=== PATIENT | female | born 1975 | race Caucasian/White ===

== ENCOUNTER 2018-06-19 07:54 | Day surgery (SDC) | payer BC ==
[2018-06-15 15:34] VITALS: BMI 36.1
[~2018-06-19 07:54] MED LIST: LACTATED RINGERS 1,000 ML IV SCH; LIDOCAINE 1% 20 ML VIAL (10MG/ML) FOR IV START INTRADERMA PRN; MIDAZOLAM 2 MG/2 ML VIAL IV PRN
[2018-06-19 08:30] VITALS: TEMP 97.6
[2018-06-19] MEDS ORDERED: fentaNYL (PF) 50 MCG/ML 2 ML AMP ONE (09:15)
[2018-06-19] MEDS ORDERED: LIDOCAINE 1% INJ 10MG/ML (20 ML MDV) ONE (09:15)
[2018-06-19] MEDS ORDERED: PROPOFOL 10 MG/ML 20 ML VIAL IV ONE (09:15)
--- NOTE | 2018-06-19 09:19 | P.GSHP ---
History of Present Illness H&P Date: 06/19/18 Chief Complaint: GI bleed this is a 43-year-old female who presents today for colonoscopy. Patient has had history of blood in her stool. She presents today for colonoscopy. She states that she has no blood in her bowel prep. Past Medical History Past Medical History: Asthma, GERD/Reflux, GI Bleed, Osteoarthritis (OA) Additional Past Medical History / Comment(s): seasonal allergies History of Any Multi-Drug Resistant Organisms: None Reported Past Surgical History: Cholecystectomy, Hysterectomy, Tonsillectomy Past Anesthesia/Blood Transfusion Reactions: Postoperative Nausea & Vomiting ( PONV) Smoking Status: Former smoker - Past Family History Mother Family Medical History: No Reported History Medications and Allergies Home Medications Medication Instructions Recorded Confirmed Type Albuterol Inhaler [Ventolin Hfa 1 - 2 puff INHALATION RT-Q6H PRN 06/15/18 History Inhaler] Ascorbic Acid [Vitamin C] 500 mg PO DAILY 06/15/18 06/19/18 History Cholecalciferol [Vitamin D3] 1,000 unit PO DAILY 06/15/18 06/19/18 History Ibuprofen [Motrin Ib] 2 tab PO DAILY 06/15/18 06/19/18 History Omeprazole 20 mg PO DAILY 06/15/18 06/19/18 History Vitamin B Complex 1 each PO DAILY 06/15/18 06/19/18 History diphenhydrAMINE [Benadryl] 25 mg PO HS PRN 06/15/18 06/19/18 History Allergies Allergy/AdvReac Type Severity Reaction Status Date / Time atenolol Allergy Rash/Hives Verified 06/19/18 08:29 Surgical - Exam Vital Signs Temp Pulse Resp BP Pulse Ox 97.6 F 87 18 156/95 99 06/19/18 08:27 06/19/18 08:27 06/19/18 08:27 06/19/18 08:27 06/19/18 08:27 - General well developed, no distress - Eyes PERRL - ENT normal pinna - Neck no masses - Respiratory normal expansion - Cardiovascular Rhythm: regular - Abdomen Abdomen: soft, non tender Assessment and Plan Assessment: GI bleed. We'll perform colonoscopy.
--- NOTE | 2018-06-19 09:34 | P.OP ---
Date of Procedure: 06/19/18 Preoperative Diagnosis: GI bleed Postoperative Diagnosis: proctitis Procedure(s) Performed: colonoscopy Anesthesia: MAC Surgeon: Harman Barboza Pathology: other (rectal polyp) Condition: stable Disposition: PACU Description of Procedure: the patient's placed on the endoscopy table in the lateral position. She received IV sedation. Digital rectal exam was performed which revealed no abnormalities. The flexible colonoscope was then placed patient anus and passed throughout the entire colon. The ileocecal valve was visualized. The cecum, ascending and transverse colon appeared normal. The descending and; appeared normal. Scope was brought back the rectum and there appeared to be some inflammatory changes of the rectum. A biopsies was performed. Scope was withdrawn for patient.
[2018-06-19 09:38] VITALS: RESP 16
[2018-06-19 09:57] VITALS: BP 129/81; PULSE 80
== END 2018-06-19 10:27 | disposition home or self-care (01) ==
LOC: ORWHC2ENDO 07:54
PROVIDERS: ATTEND Surgery
DX: K52.9 Noninfective gastroenteritis and colitis, unspecified (principal); K62.89 Other specified diseases of anus and rectum; J45.909 Unspecified asthma, uncomplicated; K21.9 Gastro-esophageal reflux disease without esophagitis; M19.90 Unspecified osteoarthritis, unspecified site; Z87.891 Personal history of nicotine dependence; Z79.1 Long term (current) use of non-steroidal anti-inflammatories (NSAID); Z79.899 Other long term (current) drug therapy; Z88.8 Allergy status to other drugs, medicaments and biological substances
CPT/HCPCS: 88305; 45380; J2001; J3010; J2704

== ENCOUNTER 2018-08-21 01:14 | Emergency (ER) | payer BC ==
[2018-08-21 01:20] VITALS: RESP 16
[2018-08-21] MEDS ORDERED: KETOROLAC 30 MG/ML 1 ML VIAL IVP STA (02:49)
[2018-08-21] MEDS ORDERED: diphenhydrAMINE 50 MG/ML 1 ML VIAL IVP STA (02:49)
[2018-08-21] MEDS ORDERED: METOCLOPRAMIDE 5 MG/ML 2 ML VIAL IVP STA (02:49)
[2018-08-21] MEDS ORDERED: SODIUM CHLORIDE 0.9% 1,000 ML IV ONE (02:50)
--- NOTE | 2018-08-21 02:53 | ED ---
Headache HPI - General Chief Complaint: Headache Stated Complaint: Headache Time Seen by Provider: 08/21/18 02:14 Mode of arrival: ambulatory Limitations: no limitations - History of Present Illness Initial Comments: This patient is a 43-year-old woman presenting with headache. She states she has been getting headaches similar to this one for approximately 2-1/2 years now. She indicates the left frontoparietal area. She states that the headache is throbbing, moderate intensity, and constant. She was at rest when it came on. It is been getting gradually worse. She has some associated nausea. No neck stiffness. No neurologic symptoms. No fever or chills. MD Complaint: headache Onset/Timin -: days(s) Onset Description: gradual Location: left, temporal Severity: moderate Quality: throbbing Consistency: constant Improves With: nothing Worsens With: none Context: occurred at rest Associated Symptoms: nausea Treatments Prior to Arrival: Ibuprofen - Related Data Home Medications Medication Instructions Recorded Confirmed Albuterol Inhaler [Ventolin Hfa 1 - 2 puff INHALATION RT-Q6H PRN 06/15/18 Inhaler] Ascorbic Acid [Vitamin C] 500 mg PO DAILY 06/15/18 06/19/18 Cholecalciferol [Vitamin D3] 1,000 unit PO DAILY 06/15/18 06/19/18 Ibuprofen [Motrin Ib] 2 tab PO DAILY 06/15/18 06/19/18 Omeprazole 20 mg PO DAILY 06/15/18 06/19/18 Vitamin B Complex 1 each PO DAILY 06/15/18 06/19/18 diphenhydrAMINE [Benadryl] 25 mg PO HS PRN 06/15/18 06/19/18 Previous Rx's Medication Instructions Recorded SUMAtriptan SUCCINATE [Imitrex] 25 mg PO ONCE PRN #10 tablet 08/21/18 Allergies Allergy/AdvReac Type Severity Reaction Status Date / Time atenolol Allergy Rash/Hives Verified 08/21/18 01:19 Review of Systems ROS Statement: Those systems with pertinent positive or pertinent negative responses have been documented in the HPI. ROS Other: All systems not noted in ROS Statement are negative. Constitutional: Denies: fever, chills Eyes: Denies: eye pain, vision change Respiratory: Denies: cough, dyspnea Cardiovascular: Denies: syncope Gastrointestinal: Reports: nausea. Denies: abdominal pain, vomiting Musculoskeletal: Denies: back pain Skin: Denies: rash Neurological: Reports: headache. Denies: weakness, numbness, paresthesias, confusion, abnormal gait Past Medical History Past Medical History: Asthma, GERD/Reflux, GI Bleed, Osteoarthritis (OA) Additional Past Medical History / Comment(s): seasonal allergies History of Any Multi-Drug Resistant Organisms: None Reported Past Surgical History: Cholecystectomy, Hysterectomy, Tonsillectomy Past Anesthesia/Blood Transfusion Reactions: Postoperative Nausea & Vomiting ( PONV) Past Psychological History: Anxiety Smoking Status: Former smoker - Past Family History Mother Family Medical History: No Reported History General Exam Limitations: no limitations General appearance: alert, in no apparent distress Head exam: Present: atraumatic, normocephalic Eye exam: Present: normal appearance, PERRL, EOMI. Absent: scleral icterus, conjunctival injection ENT exam: Present: normal oropharynx Neck exam: Present: normal inspection, full ROM. Absent: meningismus Respiratory exam: Present: normal lung sounds bilaterally. Absent: respiratory distress, wheezes, rales, rhonchi, stridor Cardiovascular Exam: Present: regular rate, normal rhythm, normal heart sounds Neurological exam: Present: alert, oriented X3, CN II-XII intact, normal gait. Absent: motor sensory deficit Skin exam: Present: warm, dry, intact, normal color. Absent: rash Course Vital Signs 08/21/18 08/21/18 01:16 04:40 Temperature 98.2 F 98.6 F Pulse Rate 95 86 Respiratory 16 16 Rate Blood Pressure 177/93 140/90 O2 Sat by Pulse 98 99 Oximetry Medical Decision Making - Medical Decision Making Patient is a 43-year-old woman having between 2 and 3 years of intermittent migraine symptoms and this is characteristic of these headaches. Discussed obtaining imaging tonight, but the patient does not have any red flag symptoms and will have her follow with neurology for MRI, with faint to spare her radiation exposure. We did discuss appropriate follow-up and return parameters. She did have good relief following the Imitrex and does request to go home. Disposition Clinical Impression: Headache Disposition: HOME SELF-CARE Condition: Good Instructions: Acute Headache (ED) Prescriptions: SUMAtriptan SUCCINATE [Imitrex] 25 mg PO ONCE PRN #10 tablet PRN Reason: Headache Is patient prescribed a controlled substance at d/c from ED?: No Referrals: Екатерина Verma DO [Primary Care Provider] - 1-2 days Yuly Tay MD [STAFF PHYSICIAN] - 1-2 days
[2018-08-21] MEDS ORDERED: SUMAtriptan SUCCINATE 6 MG/0.5 ML VIAL SQ STA (03:27)
[2018-08-21] MEDS ORDERED: PROMETHAZINE INJ 25 MG in SODIUM CHLORIDE 0.9% 50 ML IVPB STA (03:33)
[2018-08-21 04:45] VITALS: BP 140/90; PULSE 86; TEMP 98.6
== END 2018-08-21 04:40 | disposition home or self-care (01) ==
LOC: EC 01:14
DX: R51 Headache (principal); R11.0 Nausea; J45.909 Unspecified asthma, uncomplicated; K21.9 Gastro-esophageal reflux disease without esophagitis; M19.90 Unspecified osteoarthritis, unspecified site; Z87.891 Personal history of nicotine dependence; Z79.1 Long term (current) use of non-steroidal anti-inflammatories (NSAID); Z79.899 Other long term (current) drug therapy; Z88.8 Allergy status to other drugs, medicaments and biological substances
CPT/HCPCS: 99284; 96374; 96375 ×3; 96361; 96372; J3030; J1200; J2550; J2765; J1885

== ENCOUNTER → 2020-07-23 | Outpatient (CLI) | payer BC ==
[2020-07-23 13:50] LABS: Basophils # (A) 0.1 k/uL (0-0.2); Basophils % (A) 1 %; Eosinophils # (A) 0.5 k/uL (0-0.7); Eosinophils % (A) 8 %; HCT 41.2 % (34.0-46.0); HGB 14.2 gm/dL (11.4-16.0); Lymphocytes # (A) 1.8 k/uL (1.0-4.8); Lymphocytes % (A) 28 %; MCH 29.8 pg (25.0-35.0); MCHC 34.4 g/dL (31.0-37.0); MCV 86.8 fL (80.0-100.0); Mean Platelet Volume 7.7; Monocytes # (A) 0.4 k/uL (0-1.0); Monocytes % (A) 6 %; Neutrophils # (A) 3.4 k/uL (1.3-7.7); Neutrophils % (A) 53 %; Platelet Count 301 k/uL (150-450); RBC 4.75 m/uL (3.80-5.40); RDW 12.2 % (11.5-15.5); WBC 6.4 k/uL (3.8-10.6)
[2020-07-23 19:30] LABS: African American GFR (CKD) 103.2 (60.0-200.0); Albumin 4.4 g/dL (3.80-4.90); Albumin/Globulin Ratio 1.83 (1.60-3.17); Anion Gap 8.7 mmol/L (4.00-12.00); BUN/Creat Ratio 13.75 Ratio (12.00-20.00); C Reactive Protein 0.4 mg/dL (0.0-0.8); Carbon Dioxide 26.3 mmol/L (21.6-31.8); Globulin 2.4 g/dL (1.6-3.3); Potassium 3.8 mmol/L (3.5-5.5); Total Bilirubin 0.6 mg/dL (0.3-1.2); Total Protein 6.8 g/dL (6.2-8.2)
== END | disposition home or self-care (01) ==
LOC: LABWHC1 12:57
PROVIDERS: ATTEND Nurse Practitioner
DX: K62.89 Other specified diseases of anus and rectum (principal)
CPT/HCPCS: 36415; 80053; 83993; 85025; 86140; 87045; 87046; 87324

== ENCOUNTER 2020-07-31 09:49 | Day surgery (SDC) | payer BC ==
[2020-07-29 15:03] VITALS: BMI 36.1
[~2020-07-31 09:49] MED LIST changes: -LIDOCAINE 1% 20 ML VIAL (10MG/ML) FOR IV START INTRADERMA PRN; -MIDAZOLAM 2 MG/2 ML VIAL IV PRN
[2020-07-31 10:46] VITALS: RESP 16; TEMP 97.6
[2020-07-31] MEDS ORDERED: PROPOFOL 10 MG/ML 20 ML VIAL IV ONE (11:40)
--- NOTE | 2020-07-31 12:10 | P.PCN ---
Date of Procedure: 07/31/20 Description of Procedure: BRIEF HISTORY: Patient is a 45-year-old female presenting for outpatient colonoscopy for other specified diseases of the anus and rectum/proctitis. Patient had colonoscopy in 2018 for symptoms of rectal bleeding. The patient was started on 5ASA agent at that time and treated with steroids. She did not tolerate the medications. She was seen in the clinic with GI complaints and scheduled for colonoscopy for further evaluation. PROCEDURE PERFORMED: Colonoscopy with biopsy. PREOPERATIVE DIAGNOSIS: Other specified diseases of the anus and rectum, proctitis, last colonoscopy 2017. ESTIMATED BLOOD LOSS: Minimal. IV sedation per Anesthesia. PROCEDURE: After informed consent was obtained, the patient, was brought into the endoscopy unit. IV sedation was administered by Anesthesia under continuous monitoring. Digital rectal examination was normal. Initially the Olympus CF-190 flexible video colonoscope was then inserted in the rectum, gradually advanced into the cecum without any difficulty. Careful examination was performed as the scope was gradually being withdrawn. Ileocecal valve and the appendiceal orifice were visualized and appeared normal. Prep was excellent. Mucosa of the cecum, ascending colon, transverse colon, descending colon, sigmoid colon, and rectum appeared grossly normal, however there was scattered patchy erythema throughout the colon consistent with mild colitis, in the distal rectum there was moderate erythema with some friability. Biopsies were taken throughout the colon including the right colon, transverse colon, left colon, rectum and a normal- appearing terminal ileum. Retroflexion was performed in the rectum and no lesions were seen. The patient tolerated the procedure well. IMPRESSION: Mild pancolitis, with more erythema noted in the distal rectum/proctitis. Random biopsies taken of a normal-appearing terminal ileum, as well as the right colon, transverse colon, left colon and rectum. RECOMMENDATIONS: Findings of this examination were discussed with the patient and her . Okay to resume diet. Okay to resume medications. Await pathology from biopsies. Patient should follow-up in the GI clinic for further management and to go over results of the biopsies in one to 2 weeks. Consideration for 5ASA agents and possibility of rectal therapy given more active disease in the distal rectum.
[2020-07-31 12:29] VITALS: BP 127/74; PULSE 79
== END 2020-07-31 12:58 | disposition home or self-care (01) ==
LOC: ORWHC2ENDO 09:49
PROVIDERS: ATTEND Internal Medicine
DX: K52.9 Noninfective gastroenteritis and colitis, unspecified (principal); K62.89 Other specified diseases of anus and rectum; F32.9 Major depressive disorder, single episode, unspecified; Z87.19 Personal history of other diseases of the digestive system; Z87.891 Personal history of nicotine dependence; Z88.8 Allergy status to other drugs, medicaments and biological substances; Z79.899 Other long term (current) drug therapy; Z79.1 Long term (current) use of non-steroidal anti-inflammatories (NSAID); Z90.49 Acquired absence of other specified parts of digestive tract; Z90.710 Acquired absence of both cervix and uterus; Z90.89 Acquired absence of other organs; Z98.890 Other specified postprocedural states
CPT/HCPCS: 88305; 45380; J2704

== ENCOUNTER → 2020-08-28 | Outpatient (CLI) | payer BC ==
--- NOTE | 2020-09-01 14:10 | MM ---
Reason for exam: screening (asymptomatic). Last mammogram was performed 7 years and 6 months ago. Physical Findings: A clinical breast exam by your physician is recommended on an annual basis and results should be correlated with mammographic findings. MG 3D Screening Mammo W/Cad Bilateral CC and MLO view(s) were taken. Prior study comparison: March 07, 2013, mammogram. October 01, 2011, mammogram. The breast tissue is heterogeneously dense. This may lower the sensitivity of mammography. There is chronic nodularity in the left axilla. Asymmetric breast tissue left breast, stable. ASSESSMENT: Benign, BI-RAD 2 RECOMMENDATION: Routine screening mammogram of both breasts in 1 year.
== END | disposition home or self-care (01) ==
LOC: RADMAMWWP 11:02
PROVIDERS: ATTEND Family Medicine
DX: Z12.31 Encounter for screening mammogram for malignant neoplasm of breast (principal)
CPT/HCPCS: 77063; 77067

== ENCOUNTER → 2020-11-26 | Outpatient (CLI) | payer BC ==
[2020-11-26 20:41] LABS: Basophils % (A) 1.4 %; Eosinophils # (A) 0.54 X 10*3/uL (0.04-0.35); Eosinophils % (A) 7.5 %; HCT 41.6 % (37.2-46.3); HGB 13.9 g/dL (12.0-15.0); Lymphocytes # (A) 2.06 X 10*3/uL (0.90-5.00); Lymphocytes % (A) 28.5 %; MCH 28.8 pg (27.0-32.0); MCHC 33.4 g/dL (32.0-37.0); MCV 86.1 fL (80.0-97.0); Mean Platelet Volume 11.6 fL (9.5-12.2); Monocytes # (A) 0.61 X 10*3/uL (0.20-1.00); Monocytes % (A) 8.4 %; Neutrophils # (A) 3.91 X 10*3/uL (1.80-7.70); Neutrophils % (A) 53.9 %; Platelet Count 350 X 10*3/uL (140-440); RBC 4.83 X 10*6/uL (4.10-5.20); RDW 12.6 % (11.5-14.5); WBC 7.24 X 10*3/uL (4.50-10.00)
[2020-11-26 23:17] LABS: Erythrocyte Sedimentation Rate 25 mm/Hr (0-20)
== END | disposition home or self-care (01) ==
LOC: LABWHC1 13:15
PROVIDERS: ATTEND Nurse Practitioner
DX: K51.90 Ulcerative colitis, unspecified, without complications (principal)
CPT/HCPCS: 36415; 85025; 85652; 86140

== ENCOUNTER 2022-08-13 16:23 | Emergency (ER) | payer BC ==
[2022-08-13] MEDS ORDERED: KETOROLAC 15 MG/ML 1 ML VIAL IVP STA (18:52)
[2022-08-13 19:31] LABS: Basophils # (A) 0.1 k/uL (0-0.2); Basophils % (A) 1 %; Eosinophils # (A) 0.3 k/uL (0-0.7); Eosinophils % (A) 4 %; HCT 39.2 % (34.0-46.0); HGB 13.6 gm/dL (11.4-16.0); Lymphocytes # (A) 1.7 k/uL (1.0-4.8); Lymphocytes % (A) 23 %; MCHC 34.7 g/dL (31.0-37.0); MCV 83.7 fL (80.0-100.0); Mean Platelet Volume 8.6; Monocytes # (A) 0.4 k/uL (0-1.0); Monocytes % (A) 5 %; Neutrophils # (A) 4.9 k/uL (1.3-7.7); Neutrophils % (A) 64 %; Platelet Count 305 k/uL (150-450); RBC 4.68 m/uL (3.80-5.40); WBC 7.6 k/uL (3.8-10.6)
[2022-08-13 19:43] LABS: ALT 24 U/L (4-34); AST 26 U/L (14-36); African American GFR (CKD) >90 (>60 ml/min/1.73 sqM); Albumin 4.2 g/dL (3.5-5.0); Alkaline Phosphatase 82 U/L (38-126); Anion Gap 8 mmol/L; Blood Urea Nitrogen 13 mg/dL (7-17); Calcium 9.1 mg/dL (8.4-10.2); Carbon Dioxide 24 mmol/L (22-30); Chloride 108 mmol/L (98-107); Glucose 98 mg/dL (74-99); Magnesium 1.9 mg/dL (1.6-2.3); Non-African American GFR(CKD) >90 (>60 ml/min/1.73 sqM); Potassium 3.8 mmol/L (3.5-5.1); Sodium 140 mmol/L (137-145); Total Bilirubin 0.1 mg/dL (0.2-1.3); Total Protein 6.9 g/dL (6.3-8.2)
[2022-08-13 19:45] LABS: Partial Thromboplastin Time 27.7 sec (22.0-30.0)
--- NOTE | 2022-08-13 20:04 | ED ---
General Adult HPI - General Chief complaint: Extremity Problem,Nontraumatic Stated complaint: Back&Arm Pain Time Seen by Provider: 08/13/22 18:21 Source: patient, RN notes reviewed, old records reviewed Mode of arrival: ambulatory - History of Present Illness Initial comments: Patient is a 47-year-old female with past medical history remarkable for hypertension, asthma, acid reflux who presents emergency Department complaining of a three-day history of worsening left shoulder pain. States it is in the posterior aspect of her left shoulder and is a sharp shooting sensation down the posterior aspect of her left arm towards her fingertips. It is worse with movement. This radiates somewhat around to armpit. Denies any neck or back trauma. Denies any weakness. Denies any shortness of breath, difficulty breathing. Denies any fevers, chills, cough. Has no abdominal pain, nausea, vomiting, diarrhea. Presents for further evaluation at this time. No history of cardiac stents. - Related Data Home Medications Medication Instructions Recorded Confirmed Albuterol Inhaler [Ventolin Hfa 1 - 2 puff INHALATION RT-Q6H PRN 06/15/1811/15 Inhaler] Ascorbic Acid [Vitamin C] 500 mg PO DAILY 06/15/18 07/31/20 Ibuprofen [Motrin Ib] 400 tab PO DAILY PRN 06/15/18 07/31/20 Omeprazole 20 mg PO DAILY 06/15/18 07/31/20 diphenhydrAMINE [Benadryl] 25 mg PO HS PRN 06/15/18 07/31/20 Erenumab-Aooe [Aimovig 70 mg SQ Q30D 07/29/20 07/31/20 Autoinjector (2 Pack)] FLUoxetine HCL [PROzac] 20 mg PO DAILY 07/29/20 07/31/20 Loratadine [Claritin] 10 mg PO DAILY 07/29/20 07/31/20 Magnesium Oxide [Leach] 500 mg PO HS 07/29/20 07/31/20 busPIRone HCL 15 mg PO BID 07/29/20 07/31/20 Previous Rx's Medication Instructions Recorded SUMAtriptan succinate [Imitrex] 25 mg PO ONCE PRN #10 tablet 08/21/18 Allergies Allergy/AdvReac Type Severity Reaction Status Date / Time atenolol Allergy Rash/Hives Verified 08/13/22 16:44 Review of Systems ROS Statement: Those systems with pertinent positive or pertinent negative responses have been documented in the HPI. Review of Systems: CONST: Denies fever EYES: Denies blurry vision ENT: Denies nasal congestion C/V: Denies Chest pain RESP: Denies shortness of breath GI: Denies abdominal pain : Denies dysuria SKIN: Denies rash. MSK: Endorses left shoulder pain NEURO: Denies headache ROS Other: All systems not noted in ROS Statement are negative. Past Medical History Past Medical History: Hypertension Additional Past Medical History / Comment(s): seasonal allergies, cholitis, migraines, History of Any Multi-Drug Resistant Organisms: None Reported Past Surgical History: Cholecystectomy, Hysterectomy, Tonsillectomy Past Anesthesia/Blood Transfusion Reactions: Postoperative Nausea & Vomiting (PONV) Past Psychological History: Anxiety Smoking Status: Never smoker Past Alcohol Use History: Occasional Past Drug Use History: Marijuana - Past Family History Mother Family Medical History: No Reported History Brother(s) Family Medical History: Cancer General Exam - General Exam Comments Initial Comments: General: Appears in no acute distress. HEAD: Normal with no signs of head trauma. EYES: PERRLA, EOMI, conjunctiva normal, no discharge. ENT: Hearing grossly intact, normal oropharynx. RESPIRATORY: Clear breath sounds bilaterally. No wheezes, rales, or rhonchi. C/V: Regular rate and rhythm. S1 and S2 auscultated, no edema, peripheral pulses 2+ and intact throughout ABD: Abd is soft, nontender, nondistended EXT: Normal range of motion, no obvious deformity. Left shoulder pain is reproducible on palpation. No midline cervical, thoracic spine tenderness to palpation. Pain seems to be primarily over the left-sided trapezius muscle. SKIN: No rashes or lesions observed on exposed skin. NEURO: Alert and oriented x 4. Cranial nerves II-XII intact. No focal sensory or strength deficits. GCS of 15. NIH of 0. Course Vital Signs 08/13/22 16:40 Temperature 99.3 F Pulse Rate 87 Respiratory 16 Rate Blood Pressure 186/109 O2 Sat by Pulse 97 Oximetry Medical Decision Making - Medical Decision Making Based on the patient's presentation and physical exam, I'm concerned for acute cardio pulmonary etiology for her current symptoms. It is more likely that this is a radiculopathy, however with the pain radiating towards her armpit occasionally, I do want obtain basic cardiac labs, EKG, chest x-ray. She was in agreement this plan. Vital signs within except for limits. She will be given IV Toradol. Patient was in agreement this plan. EKG shows no signs of acute ischemia. Patient's laboratory studies are remarkable for an undetectable troponin. - Lab Data Result diagrams: 08/13/22 19:15 08/13/22 19:15 Lab Results 08/13/22 08/13/22 08/13/22 Range/Units 19:15 19:15 19:15 WBC 7.6 (3.8-10.6) k/uL RBC 4.68 (3.80-5.40) m/uL Hgb 13.6 (11.4-16.0) gm/dL Hct 39.2 (34.0-46.0) % MCV 83.7 (80.0-100.0) fL MCH 29.0 (25.0-35.0) pg MCHC 34.7 (31.0-37.0) g/dL RDW 13.0 (11.5-15.5) % Plt Count 305 (150-450) k/uL MPV 8.6 Neutrophils % 64 % Lymphocytes % 23 % Monocytes % 5 % Eosinophils % 4 % Basophils % 1 % Neutrophils # 4.9 (1.3-7.7) k/uL Lymphocytes # 1.7 (1.0-4.8) k/uL Monocytes # 0.4 (0-1.0) k/uL Eosinophils # 0.3 (0-0.7) k/uL Basophils # 0.1 (0-0.2) k/uL PT 11.0 (9.0-12.0) sec INR 1.0 (<1.2) APTT 27.7 (22.0-30.0) sec Sodium 140 (137-145) mmol/L Potassium 3.8 (3.5-5.1) mmol/L Chloride 108 H (98-107) mmol/L Carbon Dioxide 24 (22-30) mmol/L Anion Gap 8 mmol/L BUN 13 (7-17) mg/dL Creatinine 0.61 (0.52-1.04) mg/dL Est GFR (CKD-EPI)AfAm >90 (>60 ml/min/1.73 sqM) Est GFR (CKD-EPI)NonAf >90 (>60 ml/min/1.73 sqM) Glucose 98 (74-99) mg/dL Calcium 9.1 (8.4-10.2) mg/dL Magnesium 1.9 (1.6-2.3) mg/dL Total Bilirubin 0.1 L (0.2-1.3) mg/dL AST 26 (14-36) U/L ALT 24 (4-34) U/L Alkaline Phosphatase 82 (38-126) U/L Troponin I (0.000-0.034) ng/mL Total Protein 6.9 (6.3-8.2) g/dL Albumin 4.2 (3.5-5.0) g/dL 08/13/22 Range/Units 19:15 WBC (3.8-10.6) k/uL RBC (3.80-5.40) m/uL Hgb (11.4-16.0) gm/dL Hct (34.0-46.0) % MCV (80.0-100.0) fL MCH (25.0-35.0) pg MCHC (31.0-37.0) g/dL RDW (11.5-15.5) % Plt Count (150-450) k/uL MPV Neutrophils % % Lymphocytes % % Monocytes % % Eosinophils % % Basophils % % Neutrophils # (1.3-7.7) k/uL Lymphocytes # (1.0-4.8) k/uL Monocytes # (0-1.0) k/uL Eosinophils # (0-0.7) k/uL Basophils # (0-0.2) k/uL PT (9.0-12.0) sec INR (<1.2) APTT (22.0-30.0) sec Sodium (137-145) mmol/L Potassium (3.5-5.1) mmol/L Chloride (98-107) mmol/L Carbon Dioxide (22-30) mmol/L Anion Gap mmol/L BUN (7-17) mg/dL Creatinine (0.52-1.04) mg/dL Est GFR (CKD-EPI)AfAm (>60 ml/min/1.73 sqM) Est GFR (CKD-EPI)NonAf (>60 ml/min/1.73 sqM) Glucose (74-99) mg/dL Calcium (8.4-10.2) mg/dL Magnesium (1.6-2.3) mg/dL Total Bilirubin (0.2-1.3) mg/dL AST (14-36) U/L ALT (4-34) U/L Alkaline Phosphatase (38-126) U/L Troponin I <0.012 (0.000-0.034) ng/mL Total Protein (6.3-8.2) g/dL Albumin (3.5-5.0) g/dL - EKG Data -: EKG Interpreted by Me EKG Comments: 12-lead Electrocardiogram Interpretation Note EKG was reviewed and interpreted by myself. 12-lead ECG performed at 1648 is interpreted by me as revealing normal sinus rhythm at a rate of 78 beats per minute. [place] is normal. OK interval is 176 seconds, QRS duration 78 ms, QTc is 398 ms.. There were no ST or T wave abnormalities to suggest myocardial ischemia or injury. R wave progression across the precordium was satisfactory. By my interpretation this EKG is non-diagnostic for acute ischemia. Disposition Clinical Impression: Cervical radiculopathy Disposition: HOME SELF-CARE Condition: Good Instructions (If sedation given, give patient instructions): Cervical Radiculopathy (ED) Is patient prescribed a controlled substance at d/c from ED?: No Referrals: Mina Tran MD [Primary Care Provider] - 1-2 days Mu Stovall DO [Doctor of Osteopathic Medicine] - 1-2 days Time of Disposition: 20:45
--- NOTE | 2022-08-13 20:17 | XR ---
EXAMINATION TYPE: XR chest 2V DATE OF EXAM: 08/13/2022 7:34 PM COMPARISON: None TECHNIQUE: XR chest 2V Frontal and lateral views of the chest. CLINICAL INDICATION:Female, 47 years old with history of Chest Pain; FINDINGS: Lungs/Pleura: There is no evidence of pleural effusion, focal consolidation, or pneumothorax. Pulmonary vascularity: Unremarkable. Heart/mediastinum: Cardiomediastinal silhouette is unremarkable. Musculoskeletal: No acute osseous pathology. IMPRESSION: No acute cardiopulmonary disease/process.
--- NOTE | 2022-08-13 20:23 | CT ---
EXAMINATION TYPE: CT cervical spine wo con CT DLP: 594.9 mGycm, Automated exposure control for dose reduction was used. DATE OF EXAM: 08/13/2022 7:34 PM COMPARISON: None. CLINICAL INDICATION:Female, 47 years old with history of left arm radicular pain; TECHNIQUE: Axial CT images from the skull base to the inferior aspect of T2 we obtained without intra venous contrast. Coronal and sagittal reformatted images were also reviewed. FINDINGS: Fracture: None. Osseous structures: Multilevel degenerative disc disease changes with endplate spurring and disc oste ophyte complex's. Vertebral alignment: Alignment within normal limits. Spinal canal/Neural Foramina: Disc osteophyte complexes at C4-C5 through C6-C7. With at least mild sp inal canal stenosis. Facet joint uncovertebral joint arthropathy scattered throughout the cervical sp ine with varying degrees of neural foraminal stenosis. Neck soft tissues: Prevertebral soft tissues are within normal limits. Other: The airway is patent. The lung apices are clear. IMPRESSION: 1. No evidence of cervical spine fracture. 2. Mild multilevel degenerative disc disease. 3. Varying degrees of neural foraminal stenosis throughout this cervical spine. Consider MRI of the C -spine for complete evaluation.
--- NOTE | 2022-08-13 21:06 | ED ---
Medical Decision Making - Medical Decision Making Chest x-ray as interpreted by myself reveals no evidence of acute cardio troponin process. Cervical spine CT is interpreted by myself reveals degenerative changes. Radiology does concur with this, and also states that there is some neural foraminal stenosis throughout the cervical spine. Recommend an MRI. I did discuss with the patient is findings. Heart score is low at 1. I do believe it is safer to be discharged home at this time. Recommended follow-up with a neurologist or her business management specialist. She'll be given follow-up and phone. She was in agreement this plan. She is likely having cervical radiculopathy. I instructed the patient to follow up with their PCP in the next 1-3 days. I explained that the patient should return to the emergency department if they experience any worsening symptoms. Strict return precautions were discussed with the patient. The patient expressed understanding of these instructions. I answered all questions that the patient had. The patient was discharged home in good condition with their prescriptions and follow up information. - Lab Data Result diagrams: 08/13/22 19:15 08/13/22 19:15 Lab Results 08/13/22 08/13/22 08/13/22 Range/Units 19:15 19:15 19:15 WBC 7.6 (3.8-10.6) k/uL RBC 4.68 (3.80-5.40) m/uL Hgb 13.6 (11.4-16.0) gm/dL Hct 39.2 (34.0-46.0) % MCV 83.7 (80.0-100.0) fL MCH 29.0 (25.0-35.0) pg MCHC 34.7 (31.0-37.0) g/dL RDW 13.0 (11.5-15.5) % Plt Count 305 (150-450) k/uL MPV 8.6 Neutrophils % 64 % Lymphocytes % 23 % Monocytes % 5 % Eosinophils % 4 % Basophils % 1 % Neutrophils # 4.9 (1.3-7.7) k/uL Lymphocytes # 1.7 (1.0-4.8) k/uL Monocytes # 0.4 (0-1.0) k/uL Eosinophils # 0.3 (0-0.7) k/uL Basophils # 0.1 (0-0.2) k/uL PT 11.0 (9.0-12.0) sec INR 1.0 (<1.2) APTT 27.7 (22.0-30.0) sec Sodium 140 (137-145) mmol/L Potassium 3.8 (3.5-5.1) mmol/L Chloride 108 H (98-107) mmol/L Carbon Dioxide 24 (22-30) mmol/L Anion Gap 8 mmol/L BUN 13 (7-17) mg/dL Creatinine 0.61 (0.52-1.04) mg/dL Est GFR (CKD-EPI)AfAm >90 (>60 ml/min/1.73 sqM) Est GFR (CKD-EPI)NonAf >90 (>60 ml/min/1.73 sqM) Glucose 98 (74-99) mg/dL Calcium 9.1 (8.4-10.2) mg/dL Magnesium 1.9 (1.6-2.3) mg/dL Total Bilirubin 0.1 L (0.2-1.3) mg/dL AST 26 (14-36) U/L ALT 24 (4-34) U/L Alkaline Phosphatase 82 (38-126) U/L Troponin I (0.000-0.034) ng/mL Total Protein 6.9 (6.3-8.2) g/dL Albumin 4.2 (3.5-5.0) g/dL 08/13/22 Range/Units 19:15 WBC (3.8-10.6) k/uL RBC (3.80-5.40) m/uL Hgb (11.4-16.0) gm/dL Hct (34.0-46.0) % MCV (80.0-100.0) fL MCH (25.0-35.0) pg MCHC (31.0-37.0) g/dL RDW (11.5-15.5) % Plt Count (150-450) k/uL MPV Neutrophils % % Lymphocytes % % Monocytes % % Eosinophils % % Basophils % % Neutrophils # (1.3-7.7) k/uL Lymphocytes # (1.0-4.8) k/uL Monocytes # (0-1.0) k/uL Eosinophils # (0-0.7) k/uL Basophils # (0-0.2) k/uL PT (9.0-12.0) sec INR (<1.2) APTT (22.0-30.0) sec Sodium (137-145) mmol/L Potassium (3.5-5.1) mmol/L Chloride (98-107) mmol/L Carbon Dioxide (22-30) mmol/L Anion Gap mmol/L BUN (7-17) mg/dL Creatinine (0.52-1.04) mg/dL Est GFR (CKD-EPI)AfAm (>60 ml/min/1.73 sqM) Est GFR (CKD-EPI)NonAf (>60 ml/min/1.73 sqM) Glucose (74-99) mg/dL Calcium (8.4-10.2) mg/dL Magnesium (1.6-2.3) mg/dL Total Bilirubin (0.2-1.3) mg/dL AST (14-36) U/L ALT (4-34) U/L Alkaline Phosphatase (38-126) U/L Troponin I <0.012 (0.000-0.034) ng/mL Total Protein (6.3-8.2) g/dL Albumin (3.5-5.0) g/dL Disposition Clinical Impression: Cervical radiculopathy Disposition: HOME SELF-CARE Condition: Good Instructions (If sedation given, give patient instructions): Cervical Radiculopathy (ED) Is patient prescribed a controlled substance at d/c from ED?: No Referrals: Mu Stovall DO [Doctor of Osteopathic Medicine] - 1-2 days Mina Tran MD [Primary Care Provider] - 1-2 days
[2022-08-13 21:14] VITALS: BP 166/101; PULSE 78; RESP 20; TEMP 99.8
== END 2022-08-13 21:14 | disposition home or self-care (01) ==
LOC: EC 16:23
DX: M54.12 Radiculopathy, cervical region (principal); M48.02 Spinal stenosis, cervical region; I10 Essential (primary) hypertension; F41.9 Anxiety disorder, unspecified; J45.909 Unspecified asthma, uncomplicated; K21.9 Gastro-esophageal reflux disease without esophagitis; Z79.899 Other long term (current) drug therapy; Z79.1 Long term (current) use of non-steroidal anti-inflammatories (NSAID); Z90.49 Acquired absence of other specified parts of digestive tract; Z88.8 Allergy status to other drugs, medicaments and biological substances
CPT/HCPCS: 36415; 93005; 80053; 83735; 84484; 85025; 85610; 85730; 71046; 72125; 99284; 96374; J1885

== ENCOUNTER → 2022-09-20 | Outpatient (CLI) | payer BC ==
--- NOTE | 2022-09-21 21:06 | MM ---
Reason for Exam: Screening (asymptomatic). Last mammogram was performed 2 year(s) and 1 month(s) ago. Patient History: Menarche at age 12. First Full-Term at age 19. Hysterectomy at age 26. Risk Values: Deanna 5 year model risk: 0.6%. NCI Lifetime model risk: 6.8%. Prior Study Comparison: 10/01/2011 Screening Mammogram, Unknown. 03/07/2013 Screening Mammogram, Unknown. 08/28/2020 Bilateral Screening Mammogram, [facility]. Tissue Density: The breast tissue is heterogeneously dense. This may lower the sensitivity of mammography. Findings: Analyzed By CAD. There is no suspicious group of microcalcifications or new suspicious mass in either breast. Overall Assessment: Negative, BI-RAD 1 Management: Screening Mammogram of both breasts in 1 year. 1. Patient should continue monthly self breast exams. 2. A clinical breast exam by your physician is recommended on an annual basis. 3. This exam should not preclude additional follow-up of suspicious palpable abnormalities. Electronically signed and approved by: Cesar Santos M.D. Radiologist
== END | disposition home or self-care (01) ==
LOC: RADMAMWWP 16:40
PROVIDERS: ATTEND Internal Medicine Geriatric Medicine
DX: Z12.31 Encounter for screening mammogram for malignant neoplasm of breast (principal)
CPT/HCPCS: 77063; 77067

== ENCOUNTER 2022-12-01 10:08 | Day surgery (SDC) | payer BC ==
[2022-12-01] MEDS ORDERED: LIDOCAINE 1% (10MG/ML) FOR IV START INTRADERMA PRN (10:19)
[2022-12-01] MEDS ORDERED: LACTATED RINGERS 1,000 ML IV SCH (10:19)
[2022-12-01 10:45] VITALS: TEMP 97
[2022-12-01] MEDS ORDERED: PROPOFOL 10 MG/ML 20 ML VIAL IV ONE (11:37)
--- NOTE | 2022-12-01 11:51 | P.PCN ---
Date of Procedure: 12/01/22 Procedure(s) Performed: BRIEF HISTORY: Patient is a 47-year-old pleasant white female scheduled for an elective colonoscopy as a part of history of ulcerative colitis that was diagnosed in 2018. She is presently on Lialda 4 tablets daily. For the last 2 months she is been having diarrhea with bowel movements anywhere from 8-10 a day which are loose to watery in consistency but no blood in the stool. She is scheduled for colonoscopy to evaluate for active ulcerative colitis PROCEDURE PERFORMED: Colonoscopy with random biopsy. PREOPERATIVE DIAGNOSIS: History of ulcerative colitis, now with chronic diarrhea for 3-4 months duration. IV sedation per Anesthesia. PROCEDURE: After informed consent was obtained, the patient, was brought into the endoscopy unit. IV sedation was administered by Anesthesia under continuous monitoring. Digital rectal examination was normal. Initially the Olympus CF-160 flexible video colonoscope was then inserted in the rectum, gradually advanced into the cecum without any difficulty. Careful examination was performed as the scope was gradually being withdrawn. Ileocecal valve and the appendiceal orifice were visualized and appeared normal. Prep was excellent. Mucosa of the cecum, ascending colon, transverse colon, descending colon, sigmoid colon, and rectum appeared normal. Random biopsies were done in different areas of the colon to evaluate for colitis or dysplasia Retroflexion was performed in the rectum and no lesions were seen. The patient tolerated the procedure well. IMPRESSION: Normal-appearing colon from rectum to cecum with no evidence of active colitis or colorectal neoplasia. RECOMMENDATIONS: Findings of this examination were discussed with the patient as well as a family. She was advised to follow with the biopsy results. In the meantime we'll start her on now antimotility agents. Continue with Lialda 4 tablets daily. Follow up in office in 3-4 months..
[2022-12-01 11:55] VITALS: RESP 18
[2022-12-01 12:08] VITALS: BP 143/92; PULSE 78
== END 2022-12-01 12:40 | disposition home or self-care (01) ==
LOC: ORWHC2ENDO 10:08
PROVIDERS: ATTEND Internal Medicine Gastroenterology
DX: K52.9 Noninfective gastroenteritis and colitis, unspecified (principal); I10 Essential (primary) hypertension; F12.90 Cannabis use, unspecified, uncomplicated; F41.9 Anxiety disorder, unspecified; Z79.899 Other long term (current) drug therapy; Z88.8 Allergy status to other drugs, medicaments and biological substances; Z87.19 Personal history of other diseases of the digestive system
CPT/HCPCS: 88305; 45380; J2704

== ENCOUNTER → 2023-09-12 | Outpatient (CLI) | payer BC ==
--- NOTE | 2023-09-12 13:06 | XR ---
EXAMINATION TYPE: XR shoulder complete RT DATE OF EXAM: 09/12/2023 COMPARISON: NONE HISTORY: Pain TECHNIQUE: Three views are submitted. FINDINGS: The osseous structures are intact. There is no acute fracture or dislocation. The AC joint moderate hypertrophic arthropathy. IMPRESSION: 1. Moderate AC joint hypertrophic arthropathy. Correlate for impingement.
[2023-09-12 16:00] LABS: Basophils # (A) 0.08 X 10*3/uL (0.00-0.10); Basophils % (A) 1.1 %; Eosinophils # (A) 0.36 X 10*3/uL (0.04-0.35); Eosinophils % (A) 4.8 %; HCT 42.2 % (37.2-46.3); HGB 13.9 g/dL (12.0-15.0); Lymphocytes % (A) 33.5 %; MCH 28.7 pg (27.0-32.0); MCHC 32.9 g/dL (32.0-37.0); Monocytes # (A) 0.53 X 10*3/uL (0.20-1.00); Monocytes % (A) 7.1 %; NRBC Per 100 WBC 0 X 10*3/uL (0.00-0.01); Neutrophils # (A) 3.97 X 10*3/uL (1.80-7.70); Neutrophils % (A) 53.2 %; Platelet Count 366 X 10*3/uL (140-440); RBC 4.85 X 10*6/uL (4.10-5.20); RDW 12.7 % (11.5-14.5); WBC 7.46 X 10*3/uL (4.50-10.00)
[2023-09-12 18:58] LABS: ALT 16 U/L (8-44); AST 15 U/L (13-35); Albumin 4.4 g/dL (3.8-4.9); Albumin/Globulin Ratio 1.69 Ratio (1.60-3.17); Alkaline Phosphatase 91 U/L (41-126); BUN/Creat Ratio 17.43 Ratio (12.00-20.00); Blood Urea Nitrogen 12.2 mg/dL (9.0-27.0); Calcium 9.7 mg/dL (8.7-10.3); Carbon Dioxide 22.9 mmol/L (21.6-31.8); Chloride 102 mmol/L (96-109); Chol/HDL Ratio 4.42 Ratio; Globulin 2.6 g/dL (1.6-3.3); Glucose 91 mg/dL (70-110); LDL Cholesterol,Calculated 104.5 mg/dL (0.0-131.0); Potassium 4.5 mmol/L (3.5-5.5); Sodium 140 mmol/L (135-145); Total Bilirubin 0.3 mg/dL (0.3-1.2)
[2023-09-12 19:06] LABS: Follicle Stimulating Hormone 6.9 mIU/mL; Luteinizing Hormone 12.6 mIU/mL
== END | disposition home or self-care (01) ==
LOC: LABWHC1 12:19
PROVIDERS: ATTEND Internal Medicine Geriatric Medicine
DX: M19.011 Primary osteoarthritis, right shoulder (principal); E07.9 Disorder of thyroid, unspecified; E55.9 Vitamin D deficiency, unspecified; N95.1 Menopausal and female climacteric states; R73.9 Hyperglycemia, unspecified
CPT/HCPCS: 36415; 80053; 80061; 82306; 83001; 83002; 83036; 84439; 84443; 85025